=== PATIENT | male | born 1960 | race Caucasian/White ===

== ENCOUNTER 2023-08-24 16:06 | Emergency (ER) | payer OTHER ==
[~2023-08-24] VITALS: Ht 175.3 cm; Wt 99.8 kg
[2023-08-24] MEDS ORDERED: TAMS.4ER PO (16:14)
[2023-08-24] MEDS ORDERED: IRON18 MG PO (16:15)
[2023-08-24 16:29] VITALS: BP 117/81
== END 2023-08-24 16:32 | disposition home or self-care (01) ==
LOC: ER 16:06
DX: R42 Dizziness and giddiness (principal); R53.1 Weakness; R61 Generalized hyperhidrosis
CPT/HCPCS: 99283

== ENCOUNTER 2024-05-07 07:03 | Day surgery (SDC) | payer OTHER ==
[2024-05-07] VITALS (18 sets, daily range): BP systolic 96–137; BP diastolic 60–99
[~2024-05-07] VITALS: Ht 182.9 cm; Wt 98.3 kg
[~2024-05-07 07:03] MED LIST: IRON18 MG PO; Lactated Ringer's 1,000 ML IV SCH; TAMS.4ER PO; TURMERIC500 M2 PO; Vitamin C100 M1 PO
--- NOTE | 2024-05-07 07:42 | NUR ---
History, Chart, Medications and Allergies reviewed before start of procedure. Lungs clear T/O to Auscultation. Patient states colon prep results clear. Pre-Op teaching done. Pt verbalizes understanding.
[2024-05-07] MEDS ORDERED: propofoL 40 ML IV ONE (08:09)
[2024-05-07] MEDS ORDERED: Benzocaine Oral Spray 0.5ML UD ONE (08:13)
--- NOTE | 2024-05-07 08:14 | NUR ---
05/07/24 0814 Erika Benson History, Chart, Medications and Allergies reviewed before start of procedure. HISTORY, CHART, MEDICATIONS AND ALLERGIES REVIEWED BEFORE START OF PROCEDURE. PATIENT CONFIRMS NPO STATUS AND AGREES WITH SCHEDULED PROCEDURE. 3-LEAD EKG REVIEWED WITH PHYSICIAN PRIOR TO START OF PROCEDURE. MONITOR INTACT WITH CONTINUOUS PULSE OXIMETRY,CAPNOGRAPHY, 3-LEAD EKG, INTERMITTENT BP. SUPPLEMENTAL O2 TO BE TITRATED THROUGHOUT PROCEDURE TO MAINTAIN O2 SATURATION ABOVE 90%. PATIENT DETERMINED TO BE ASA APPROPRIATE FOR PROPOFOL SEDATION PRIOR TO START OF PROCEDURE BY DR. GUERRERO. MALLAMPATI CLASS 1 AIRWAY: COMPLETE VISULATIZATION OF THE SOFT PALATE. Dentures out. Hurricaine spray applied to back of throat per order.
[2024-05-07] MEDS ORDERED: Midazolam HCl 1MG / ML 2ML Vial ONE (08:16)
--- NOTE | 2024-05-07 09:15 | NUR ---
DISCHARGE NOTE PT A&OX4, CHATTING C STAFF, NO COMPLAINTS, ABDOMEN SOFT AND NON TENDER. TOLERATING PO FLUIDS. Patient up to Ambulate independently. Gait steady. Discharge instructions reviewed with patient. Patient verbalizes understanding. Copy given to patient to take home. Discharged via wheelchair to private car for ride home.
== END 2024-05-07 09:20 | disposition home or self-care (01) ==
LOC: ORSCMMR 07:03 → ORD 08:00 → ORSCMMR 09:20
PROVIDERS: Internal Medicine Gastroenterology
PROC: 0DB98ZX Excision of Duodenum, Via Natural or Artificial Opening Endoscopic, Diagnostic (ICD-10-PCS; principal; 2024-05-07 08:00)
PROC: 0DB68ZX Excision of Stomach, Via Natural or Artificial Opening Endoscopic, Diagnostic (ICD-10-PCS; principal; 2024-05-07 08:00)
PROC: 0DBN8ZX Excision of Sigmoid Colon, Via Natural or Artificial Opening Endoscopic, Diagnostic (ICD-10-PCS; principal; 2024-05-07 08:00)
DX: D64.9 Anemia, unspecified (principal); K62.5 Hemorrhage of anus and rectum; C61 Malignant neoplasm of prostate; Z87.891 Personal history of nicotine dependence; K63.5 Polyp of colon
CPT/HCPCS: 88305; 88342; A9270; J2250; J2704; J7120